=== PATIENT | male | born 1990 | race African-American/Black ===

== ENCOUNTER 2019-12-29 05:18 | Emergency (ER) | payer OTHER ==
[~2019-12-29] VITALS: Ht 185.4 cm; Wt 105.9 kg
[~2019-12-29 05:18] MED LIST: IBUPROFEN 600600 M1 PO
[2019-12-29] MEDS ORDERED: PERCOCET 5-3251 EACH PO ×2 (05:42→08:34)
[2019-12-29] MEDS ORDERED: METHOCARBAMOL500 M2 PO (05:43)
[2019-12-29] MEDS ORDERED: MECLIZINE HCL12.5 MG PO (05:43)
[2019-12-29] MEDS ORDERED: MOBIC15 MG PO (08:34)
[2019-12-29 08:41] VITALS: BP 141/81
== END 2019-12-29 08:55 | disposition home or self-care (01) ==
LOC: ER 05:18
DX: S12.101A Unspecified nondisplaced fracture of second cervical vertebra, initial encounter for closed fracture (principal); V98.8XXA Other specified transport accidents, initial encounter; Y93.89 Activity, other specified; Y92.89 Other specified places as the place of occurrence of the external cause; Y99.8 Other external cause status